=== PATIENT | female | born 1950 | race Caucasian/White ===

== ENCOUNTER 2019-03-07 13:08 | Inpatient (IN) | payer OTHER ==
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
[2019-03-07] MEDS ORDERED: NS 1,000 ML IV ONE (13:47)
[2019-03-07] MEDS ORDERED: NS 500 ML IV ONE (14:01)
[2019-03-07] MEDS ORDERED: ATROPINE SULFATE 1 MG/ML VIAL IVP ONE (14:01)
[2019-03-07 14:06] LABS: PLATELET COUNT 247 10^3/uL (150-400)
[2019-03-07] MEDS ORDERED: IOPAMIDOL (ISOVUE-300) 100 ML BTL ONE (14:10)
[2019-03-07 14:15] LABS: INR 0.95 (0.83-1.16); PROTIME(PATIENT) 12.3 SEC (12.0-15.0)
[2019-03-07] MEDS ORDERED: ONDANSETRON DISINTEGRATING 4 MG TAB PO PRN (14:42)
[2019-03-07] MEDS ORDERED: ACETAMINOPHEN 325 MG TAB PO PRN (14:42)
[2019-03-07] MEDS ORDERED: NS 1,000 ML IV SCH (14:45)
[2019-03-07] MEDS ORDERED: LORazepam 2 MG/ML INJ IVP ONE (15:01)
[2019-03-07] MEDS ORDERED: ZOLPIDEM TARTRATE 5 MG TAB PO PRN (16:31)
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
[2019-03-07] MEDS: PANTOPRAZOLE SODIUM 40 MG TAB PO SCH ×2 (18:39→20:51)
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
[2019-03-07] MEDS: IPRATROPIUM 0.06% NASAL SPRAY EACHNARE SCH (20:49)
[2019-03-07] MEDS: oxyCODONE IR 5 MG TAB PO PRN ×2 (20:50→22:19)
[2019-03-07] MEDS: ONDANSETRON 4 MG/2 ML VIAL IVP PRN (20:50)
[2019-03-07] MEDS: MAGNESIUM OXIDE 400 MG TAB PO SCH (20:50)
[2019-03-07] MEDS: valACYclovir 500 MG TAB PO SCH (20:51)
[2019-03-08 05:05] LABS: PLATELET COUNT 176 10^3/uL (150-400)
[2019-03-08] MEDS: oxyCODONE IR 5 MG TAB PO PRN ×4 (05:37→18:49)
[2019-03-08] MEDS: ONDANSETRON 4 MG/2 ML VIAL IVP PRN (05:37)
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
[2019-03-08] MEDS: HYDROCODONE/APAP 5/325 TAB PO PRN ×2 (08:52→18:00)
[2019-03-08] MEDS: buPROPion XL 150 MG TAB PO SCH (08:54)
[2019-03-08] MEDS: ATORVASTATIN CALCIUM 10 MG TAB PO SCH (08:55)
[2019-03-08] MEDS: valACYclovir 500 MG TAB PO SCH ×2 (08:56→20:50)
[2019-03-08] MEDS: SERTRALINE HCL 100 MG TAB PO SCH (08:56)
[2019-03-08] MEDS ORDERED: MAGNESIUM HYDROXIDE 30 ML UDCUP PO PRN (09:18)
--- NOTE | 2019-03-08 09:20 | SOAPPROG ---
SOAP Progress Note Assessment/Plan: Assessment: Plan: Subjective: tertiary survey heent atraumatic, neck non tender, spine non tender lungs clear heart nml abd mildly distended but non tender pelvis fractures uppper and lower ext atraumatic assess: no new injuries, pelvic fx. hct lower today- does not look liek she is having any hemodynamic issues. will re check hct at 4 pm Objective: Vital Signs Temp Pulse Resp BP Pulse Ox 36.8 C 74 16 121/70 H 95 03/08/19 07:44 03/08/19 07:44 03/08/19 07:44 03/08/19 07:44 03/08/19 07:44 Laboratory Results 03/08/19 04:15 03/08/19 04:15 03/07/19 03/08/19 03/09/19 05:59 05:59 05:59 Intake Total 1650 Output Total 2000 Balance -350 PT 12.3 SEC (12.0-15.0) 03/07/19 13:16 INR 0.95 (0.83-1.16) 03/07/19 13:16 ICD10 Worksheet Patient Problems: Problems Problem Status Onset Inferior pubic ramus fracture Acute Fracture of superior pubic ramus Acute Ischium fracture Acute
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
[2019-03-08] MEDS: IPRATROPIUM 0.06% NASAL SPRAY EACHNARE SCH ×2 (12:38→20:53)
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
[2019-03-08] MEDS: PANTOPRAZOLE SODIUM 40 MG TAB PO SCH (18:00)
[2019-03-08] MEDS: MAGNESIUM OXIDE 400 MG TAB PO SCH (20:50)
[2019-03-09] MEDS: oxyCODONE IR 5 MG TAB PO PRN ×4 (04:22→20:08)
[2019-03-09] MEDS: valACYclovir 500 MG TAB PO SCH ×2 (07:54→20:08)
[2019-03-09] MEDS: SERTRALINE HCL 100 MG TAB PO SCH (07:55)
[2019-03-09] MEDS: ATORVASTATIN CALCIUM 10 MG TAB PO SCH (07:55)
[2019-03-09] MEDS: buPROPion XL 150 MG TAB PO SCH (07:55)
[2019-03-09] MEDS: ENOXAPARIN 40 MG/0.4 ML SYR SC SCH (08:01)
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
--- NOTE | 2019-03-09 08:44 | PDIAF ---
- Diagnosis Diagnosis: pelvic fx Code Status: Full Code - Medication Management Discharge Medications: electronically signed and located in the Home Medication List. - Orders Services needed: Physical Therapy Additional Instructions: wbat rom as dilshad lovenox for 2 weeks, longer if poor mobility f/u with local ortho or me at one month seek attn for increasing leg pain, swelling or other focal complaints - Follow Up Care Current Providers and Referrals: Unknown,Unknown [Primary Care Provider] - Eduardo England MD [Medical Doctor] -
[2019-03-09] MEDS: IPRATROPIUM 0.06% NASAL SPRAY EACHNARE SCH ×2 (09:05→20:12)
[2019-03-09] MEDS ORDERED: POLYETHYLENE GLYCOL 3350 17 GM PKT PO PRN (12:40)
[2019-03-09] MEDS ORDERED: MAGNESIUM HYDROXIDE 30 ML UDCUP PO PRN (12:40)
[2019-03-09] MEDS ORDERED: LACTULOSE 20 GM/30 ML UDCUP PO PRN (12:40)
[2019-03-09] MEDS ORDERED: BISACODYL 10 MG SUPP PR PRN (12:40)
--- NOTE | 2019-03-09 16:25 | ASMTCMCOM ---
CM Note CM Note Notes: Spoke with pt and dtr in the room. Pt to discharge tomorrow to dtr's home in [place] with HHC. [facility] accepted and pt is agreeable. CM to follow. D/c Plan: [facility] Date Signed: 03/09/2019 04:25 PM Electronically Signed By:Neena Hi
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
[2019-03-09] MEDS: PANTOPRAZOLE SODIUM 40 MG TAB PO SCH (17:36)
[2019-03-09] MEDS: SENNOSIDES/DOCUSATE SODIUM TAB PO SCH (20:07)
[2019-03-09] MEDS: MAGNESIUM OXIDE 400 MG TAB PO SCH (20:07)
[2019-03-10] MEDS: oxyCODONE IR 5 MG TAB PO PRN ×3 (04:26→12:28)
[2019-03-10] MEDS: ENOXAPARIN 40 MG/0.4 ML SYR SC SCH (08:25)
[2019-03-10] MEDS: ATORVASTATIN CALCIUM 10 MG TAB PO SCH (08:26)
[2019-03-10] MEDS: SERTRALINE HCL 100 MG TAB PO SCH (08:26)
[2019-03-10] MEDS: SENNOSIDES/DOCUSATE SODIUM TAB PO SCH (08:26)
[2019-03-10] MEDS: buPROPion XL 150 MG TAB PO SCH (08:28)
[2019-03-10] MEDS: valACYclovir 500 MG TAB PO SCH (08:28)
[2019-03-10] MEDS: IPRATROPIUM 0.06% NASAL SPRAY EACHNARE SCH (11:04)
[2019-03-10 12:20] VITALS: BP 137/83
--- NOTE | 2019-03-10 13:33 | PDHOMEO2F ---
Home Oxygen Face to Face Home Orders: I certify that a physician or a nurse practitioner or physician's records management assistant has had a [id number] encounter with this patient on the date of this order due to the diagnosis listed, which relates to the primary reason the patient requires home oxygen. Alternative treatments have been tried, or considered, and deemed ineffective. It is anticipated that supplemental oxygen will result in improvement with treatment. Home oxygen qualifying diagnosis: nocturnal hypoxemia Home oxygen secondary diagnosis: hypoxemia with exercise SpO2 on room air (%): 82% RA while sleeping Frequency of home oxygen needed: during sleep Home oxygen liters per minute: 1-2 lpm Home oxygen delivery device: nasal cannula Concentrator: Yes E-tanks for mobility and back up: Yes If ordering portable O2, is the patient mobile in the home?: Yes I certify that, based on these findings, the home oxygen is medically necessary for this patient for the following length of time. Length of time home oxygen needed: 1 month Home Oxygen Comment: patient will need sleep study when recovered from pelvic fracture and off narcotics
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
--- NOTE | 2019-03-10 17:48 | ASMTCMCOM ---
CM Note CM Note Notes: D/W RN, patient will d/c home today to daughter's and have follow-up with [facility], PTPollo Adams with [facility] notified, orders sent via [employer]. Date Signed: 03/10/2019 05:48 PM Electronically Signed By:Lexi Russell RN
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
--- NOTE | 2019-03-10 17:57 | ASMTLACE ---
ALENE Length of stay for Answers: 3 days current admission Acuity / Level of Answers: Yes Care: Did the patient have an inpatient admission? Comorbidities - select Answers: Other Notes: HLD all that apply # of Emergency department Answers: 1-2 visits in the last 6 months Social determinants Answers: Mental health diagnosis (anxiety, depression, pers onality disorders, etc.) Score: 11 Date Signed: 03/10/2019 05:57 PM Electronically Signed By:Lexi Russell RN
--- NOTE | 2019-03-12 11:31 | PDDCSUM ---
Discharge Summary Discharge Summary: #[id number] [place] Luo MD, FACS
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
== END 2019-03-10 15:35 | disposition home health service (06) | DRG 536 ==
LOC: F3N 16:33 → F3E 03-08 17:40
PROVIDERS: ADMIT Surgery; ATTEND Surgery
DX: S32.512A Fracture of superior rim of left pubis, initial encounter for closed fracture (principal); S32.691A Other specified fracture of right ischium, initial encounter for closed fracture; V18.0XXA Pedal cycle driver injured in noncollision transport accident in nontraffic accident, initial encounter; Y92.488 Other paved roadways as the place of occurrence of the external cause; Y92.89 Other specified places as the place of occurrence of the external cause; K21.9 Gastro-esophageal reflux disease without esophagitis; R09.02 Hypoxemia; R35.0 Frequency of micturition; F41.8 Other specified anxiety disorders; Z90.13 Acquired absence of bilateral breasts and nipples
CPT/HCPCS: 82435-PO; 82565-PO; 82947-PO; 84132-PO; 84295-PO; 84520-PO; 85014-ER; 92523-GN; 96374; 97116-GP; 97161-GP; 97165-GO; 97530-GP; 97535-GO; J1650; J2060; J2405; Q9967